=== PATIENT | female | born 1985 | race Caucasian/White ===

== ENCOUNTER → 2017-01-03 | Day surgery (SDC) | payer OTHER ==
[~2017-01-03] VITALS: Ht 157.5 cm; Wt 76.2 kg
--- NOTE | 2017-01-03 18:31 | Operative Report ---
Operative/Inv Procedure Report Surgery Date: 01/03/17 Name of Procedure: Left arthroscopically-assisted ACL reconstruction with patellar tendon autograft Pre-Operative Diagnosis: Left ACL tear Post-Operative Diagnosis: Left ACL tear Estimated Blood Loss: less than 50ml Surgeon/Lining Machine Tender: JUNIOR MATHIS,EARL Beltran; Laci GUERRA Anesthesia: general endotracheal tube, block IV Fluids: see anesthesia report Implants: Titus 4.0mm 42mm cannulated screw w/ washer (femur) Mitek 7x20mm [place] metal screw (tibia) Drains: None Specimens: None Tourniquet: 130min Complications: None Condition: Stable Operative/Procedure Note Note: INDICATION FOR PROCEDURE: Flor Torrez is a 31 year old female who sustained a left knee injury in the fall of 2015. She underwent conservative management, including activity modification and physical therapy with minimal improvement in pain. A MRI showed a left ACL tear. After discussing the risks, benefits, and alternatives to surgery, the patient has opted to proceed with left ACL reconstruction using patellar tendon autograft. OPERATIVE REPORT: Flor Torrez arrived at [facility] on 01/03/2017. She was met in the pre-operative holding area, where her operative extremity was marked. A regional block was performed by the anesthesia service. She was then taken into the OR and placed supine on the OR table. A time-out procedure was performed and the patient and operative extremity were verified. The patient was induced under general anesthesia. A nonsterile tourniquet was applied to the left upper thigh and the left lower extremity was prepped and draped in the usual sterile fashion. Examination under anesthesia reveal a positive Lyric's test and a Pivot shift. We therefore opted to proceed with graft harvesting. An esmarch bandage was used to exsanguinate the left leg, and the tourniquet raised to 300mmHg. With the knee in flexion, an anterior incision was made, slightly medial, from the inferior pole of the patella to the tibial tubercle. This was taken through the underlying tissues until the paratenon was identified. This was carefully split and dissected medially and laterally. The middle 10mm of patellar tendon was incised with corresponding bone plugs taken from the inferior pole of the patellar and tibial tubercle. The graft was taken to the back table for preparation. Both bone plugs measured 10mm in diameter. Two #2 ticron were placed in the femoral plug and two #5 ticron placed in the tibial plug. A diagnostic knee arthroscopy was performed. No medial or lateral meniscal tears were noted, and the cartilage in the medial and lateral compartments was in good condition. The ACL was noted to be torn in the notch. The ACL and corresponding footprints were thoroughly debrided with a shaver. An accessory medial portal was created after localization with a spinal needle. Through this portal, an off-set guide was placed on the back wall of the medial aspect of the lateral femoral condyle. A beath pin was placed and drilled across the femur with knee in hyperflexion. The tibial guide set at 50 deg was then placed in the tibial footprint. A guidewire was driven from the anteromedial tibia into the footprint. Once both wires were placed, fluoroscopy was used to verify the position of the tunnels. Adjustments were made accordingly. The femoral tunnel was initially reamed with a 8mm partially fluted reamer. Care was taken to protect the medial femoral condyle while passing the reamer in/out of the knee. The tunnel was cleared of debris and a 10mm reamer was then passed. A passing stitch was shuttled through the beath pin and into the tunnel. With the knee at 90 deg, a 10mm fully-fluted reamer was used to created the tibial tunnel. Again, debris was removed using a shaver. The graft was then passed throught the tibial tunnel and into the knee using the passing stitch. It was pulled into the femoral tunnel. A nitinol wire was passed, followed by a 7x20mm blunt metal screw. The was placed at the bony interface between the graft plug and femoral wall, however did not provide appropriate fixation of the graft. The screw was removed and the graft pulled anteriorly through gap in the patellar tendon for protection. On further inspection, there was evidence of breech of the posterior wall of the femur. The beath pin was again placed through the accessory medial portal and placed anterior to the prior tunnel. This was drive medial to lateral. A 8mm reamer was used to open the tunnel to a depth of 22mm, which some overlap of the prior tunnel. The passing sutures were again shuttled using the beath pin, and the graft was pulled into the new tunnel. It was gently tapped into place with good fit. The sutures exiting the lateral aspect of the femur were held under tension. A 4.0mm cannulated screw system was selected for suspensory fixation. A guidewire was placed bicortical across the femur and overdrilled. A 42mm fully threaded screw and washer was placed and taken to close approximation with the lateral cortex. The graft sutures were then tied around the screw and wrapped under prior to taking the screw completely down with good purchase in bone. The camera was reintroduced into the knee. The graft was tensioned from the tibial side and did not moved. The camera was removed and the knee extended. The nitinol wire was again placed , followed by a tap, and then placement of a 7x20mm metal screw. This provided excellent interference fit of the tibial bone plug in the tibial tunnel. The camera was reintroduced into the knee. The knee was taken through a range of motion with not evidence of graft malposition or movement. A probe was introduced and the graft noted to be under good tension. The instruments were removed and the knee taken into extension. The remaining bone graft was packed into the patellar defect and overlying paratenon closed with 0 vicryl. Two sutures were placed in the patellar tendon defect. The remaining graft was placed in the tibial plug defect. The incision was closed in layers using 0 vicryl, 2-0 vicryl, and a running 3-0 prolene. The incision in the lateral thigh was closed using 2-0 vicryl and 3-0 prolene. The incisions were dressed with steri-strips, fluffs, ABD pads, and secured with sterile webril. The leg was wrapped with an JOSE JUAN bandage from foot to mid-thigh. The patient was extubated and moved from the OR to the recovery room in stable condition.
== END ==
LOC: STS 01:58
DX: S83.512A Sprain of anterior cruciate ligament of left knee, initial encounter (principal); W19.XXXA Unspecified fall, initial encounter
CPT/HCPCS: 81025; J0131; J0171; J0690; J1630; J2250